=== PATIENT | female | born 1965 | race Two or more races ===

== ENCOUNTER → 2024-10-31 | Outpatient (CLI) | payer MEDICAID, SELFPAY ==
--- NOTE | 2024-10-31 15:00 | XR_ITS ---
Examination: Pelvic ultrasound, transabdominal, complete Technique: Transabdominal ultrasound of the pelvis performed using grayscale imaging Date and time of exam: October 31, 2024 1434 hours INDICATIONS: Onset pelvic pain this week FINDINGS: Uterus 9.4 x 3.2 x 5.8 cm anteverted No uterine mass. Endometrial stripe 0.3 cm Right ovary 3.7 x 1.8 x 3.4 cm arterial flow, 16 mm follicular cyst Left ovary 3.5 x 1.6 x 3.2 cm arterial flow IMPRESSION: No uterine or solid adnexal mass
== END | disposition home or self-care (01) ==
PROVIDERS: PCP Nurse Practitioner Family; Referring Provider Nurse Practitioner Family; Visit Provider Nurse Practitioner Family
DX: R10.2 Pelvic and perineal pain (principal)
CPT/HCPCS: 76856

== ENCOUNTER → 2025-02-24 | Outpatient (CLI) | payer MEDICAID, SELFPAY ==
--- NOTE | 2025-02-24 10:00 | XR_ITS ---
Examination: Screening digital mammography, bilateral Computer aided detection 3-D breast Tomosynthesis, bilateral Date and time of exam: 02/24/2025, 10:18 AM Comparisons: July 2017 through November 2023 Indications: Screening Technique: Nonmagnified MLO, CC views of the breasts to been obtained, reconstructed from 3-D Tomosynthesis images. R2 computer aided detection program utilized for evaluation of suspicious masses and/or abnormal calcifications. 3-D Tomosynthesis images obtained. Technologist: Findings: The breasts are heterogeneously dense, which may obscure small masses. No evidence of abnormal masses or suspicious calcifications. Impression: BI-RADS category 1: Negative findings (within normal) Recommend 1 year follow-up mammogram
== END | disposition home or self-care (01) ==
LOC: CDIM 10:05
PROVIDERS: Referring Provider Nurse Practitioner Family; Visit Provider Nurse Practitioner Family
DX: Z12.31 Encounter for screening mammogram for malignant neoplasm of breast (principal); R92.313 Mammographic fatty tissue density, bilateral breasts
CPT/HCPCS: 77063; 77067

== ENCOUNTER → 2025-09-16 | Outpatient (CLI) | payer MEDICAID, SELFPAY ==
--- NOTE | 2025-09-16 10:48 | XR_ITS ---
Examination: Abdomen sonogram, complete Date and time of exam: September 16, 2025, 1219 hours INDICATIONS: Abnormal elevated liver enzymes on laboratory examination performed 1 week ago. Technique: Multiple real-time grayscale transabdominal sonographic images of the abdomen have been obtained. Findings: Normal gallbladder Normal common bile duct 0.4 cm Pancreatic head 1.7 cm Aorta not enlarged. Liver 15.3 cm fatty infiltration Normal hepatopetal portal venous flow Patent IVC Right kidney 9.9 cm renal cortex 1.8 cm Left kidney 10.3 cm renal cortex 2.4 cm Moderate renal scar formation Spleen 7.6 cm IMPRESSION: Normal gallbladder Liver normal size fatty infiltration Bilateral moderate scar formation involving the kidneys
== END | disposition home or self-care (01) ==
PROVIDERS: PCP Nurse Practitioner Family; Referring Provider Nurse Practitioner Family; Visit Provider Nurse Practitioner Family
DX: K76.0 Fatty (change of) liver, not elsewhere classified (principal); N28.89 Other specified disorders of kidney and ureter
CPT/HCPCS: 76700